=== PATIENT | male | born 1960 | race Caucasian/White ===

== ENCOUNTER → 2017-11-15 | Outpatient (CLI) | payer OTHER ==
--- NOTE | 2017-11-15 14:58 | RAD ---
5 views of the thoracic spine 11/15/2017 Indication: Thoracic radiculopathy Comparison study: None Discussion: No evidence of acute fracture or alignment abnormality is identified. Vertebral body heights are preserved. Minimal diffuse disc space narrowing is seen consistent with mild age-appropriate degenerative change. No acute soft tissue abnormalities are identified. Impression: Mild degenerative changes. No radiographic evidence of acute osseous normality.
== END | disposition home or self-care (01) ==
LOC: PMG 09:15
PROVIDERS: ATTEND Physician Assistant Medical
DX: M54.14 Radiculopathy, thoracic region (principal); M47.894 Other spondylosis, thoracic region
CPT/HCPCS: 72072

== ENCOUNTER → 2018-04-13 | Outpatient (CLI) | payer OTHER ==
--- NOTE | 2018-04-13 09:36 | RAD ---
Chest, 2 views, 04/13/2018: HISTORY: Shortness of breath, chest pain Comparison is made to a study from 01/27/2016. The heart size and pulmonary vascularity are normal. No pulmonary infiltrate is seen. There is no evidence of pleural fluid. IMPRESSION: No acute cardiopulmonary abnormality is detected. Electronically signed by: Rafael Leyva MD (04/13/2018 9:33 AM) [facility]
[2018-04-13 09:49] LABS: BASO % 1 % (0-3); EOS # 0.1 x10^3/uL (0.0-0.7); EOS % 2 % (0-3); HEMATOCRIT 38.8 % (39.0-53.0); HEMOGLOBIN 13.7 g/dL (13.0-17.5); LYMPH # 1.3 x10^3/uL (1.0-4.8); LYMPH % 35 % (24-48); MEAN CORPUSCULAR HEMOGLOBIN 35 pg (25-35); MEAN CORPUSCULAR HGB CONC 35 g/dL (31-37); MEAN CORPUSCULAR VOLUME 99 fL (79-100); MONO # 0.3 x10^3/uL (0.0-1.1); MONO % 7 % (0-9); NEUT # 2.1 x10^3uL (1.8-7.7); NEUT % 55 % (31-73); PLATELET COUNT 177 x10^3/uL (140-400); RED BLOOD COUNT 3.92 x10^6/uL (4.30-5.70); RED CELL DISTRIBUTION WIDTH 14.4 % (11.5-14.5); WHITE BLOOD COUNT 3.8 x10^3/uL (4.0-11.0)
[2018-04-13 10:24] LABS: ALBUMIN 3.2 g/dL (3.4-5.0); ALBUMIN/GLOBULIN RATIO 0.4 (1.0-1.7); CALCIUM 9.1 mg/dL (8.5-10.1); CREATININE 1.1 mg/dL (0.7-1.3); TOTAL BILIRUBIN 0.6 mg/dL (0.2-1.0); TOTAL PROTEIN 10.7 g/dL (6.4-8.2)
[2018-04-13 13:55] LABS: FREE T4 0.87 ng/dL (0.76-1.46); THYROID STIM HORMONE (TSH) 4.724 uIU/mL (0.358-3.740)
== END | disposition home or self-care (01) ==
LOC: PMG 08:59
PROVIDERS: ATTEND Physician Assistant
DX: R06.00 Dyspnea, unspecified (principal); R53.83 Other fatigue; I10 Essential (primary) hypertension
CPT/HCPCS: 36415; 71046; 80053; 80061; 82553; 83615; 84439; 84443; 84484; 85025

== ENCOUNTER → 2018-05-01 | Outpatient (CLI) | payer OTHER ==
--- NOTE | 2018-05-01 10:19 | RAD ---
Right upper quadrant abdominal ultrasound, 05/01/2018: HISTORY: Right upper quadrant pain The gallbladder is within normal limits in size. There is no sonographic evidence of cholelithiasis. The gallbladder geiger are not thickened. No bile duct dilatation is evident. The liver demonstrates generalized increased echogenicity, most commonly due to fatty change. No hepatic mass is evident. The visualized portions of the right kidney and pancreas are unremarkable. IMPRESSION: 1. No significant gallbladder abnormality is detected. 2. Increased hepatic echogenicity suggesting hepatic steatosis. Electronically signed by: Rafael Leyva MD (05/01/2018 10:15 AM) [facility]
== END | disposition home or self-care (01) ==
LOC: PMG 09:13
PROVIDERS: ATTEND Physician Assistant Medical
DX: R10.11 Right upper quadrant pain (principal)
CPT/HCPCS: 76705

== ENCOUNTER → 2018-06-27 | Outpatient (CLI) | payer OTHER ==
[~2018-06-27] MED LIST: IOHEXOL 240 MG/ML 50ML VIAL. ONE; IOHEXOL 300 MG/ML 75 ML VIAL. IV ONE
--- NOTE | 2018-06-27 11:10 | RAD ---
EXAM: Abdomen CT with intravenous contrast. HISTORY: Pain status post cholecystectomy. TECHNIQUE: Computed tomographic images of the abdomen were obtained following the administration of 75 cc Omnipaque 300 intravenous contrast. Multiplanar reformatting was performed. *One or more of the following individualized dose reduction techniques were utilized for this examination: 1. Automated exposure control. 2. Adjustment of the mA and/or kV according to patient size. 3. Use of iterative reconstruction technique. COMPARISON: 12/04/2015. FINDINGS: Evaluation of the lower thorax demonstrates posterior dependent and basilar atelectasis with slight increased extrapleural fat. There is right middle lobe and lingular atelectasis or scarring. There is a 3 mm nodule within the right middle lobe. There is mild cardiomegaly. There are prominent nonspecific right costophrenic lymph nodes, likely reactive or physiologic. These are slightly increased compared to the prior study There is hepatomegaly and hepatic steatosis. There is a 2.2 cm fluid collection within the gallbladder facet. The pancreas is unremarkable. The spleen is mildly enlarged, measuring 15.0 cm. The adrenal glands are unremarkable. There is no nephroureterolithiasis or obstructive uropathy. No suspicious renal lesion is seen. There is no appendicitis. There are diverticula within the visualized colon. There is no convincing diverticulitis. There is stranding within the right ventral abdominal wall and the periumbilical soft tissues due to recent laparoscopic surgery. There are prominent retroperitoneal and mesenteric lymph nodes, none of which are pathologically enlarged. There are degenerative changes within the spine, primarily at the lower lumbar levels. There is a transitional lumbosacral segment. IMPRESSION: 1. Small fluid collection within the gallbladder fossa measuring 2.2 cm. Given a history of recent surgery, this is likely due to a small postoperative seroma. The imaging appearance does not favor a biloma or abscess. 2. Hepatic steatosis and hepatosplenomegaly. 3. Colonic diverticulosis. 4. Stranding within the right ventral abdominal wall and periapical soft tissues due to recent fluoroscopic surgery. 5. Note is made that the pelvis is excluded from the [id number] on this exam. Electronically signed by: Gay Santo MD (06/27/2018 11:07 AM) [id number]
== END | disposition home or self-care (01) ==
LOC: CT 08:40
PROVIDERS: ATTEND Neuromusculoskeletal Medicine & OMM
DX: K76.0 Fatty (change of) liver, not elsewhere classified (principal); K57.30 Diverticulosis of large intestine without perforation or abscess without bleeding; J98.11 Atelectasis; I10 Essential (primary) hypertension; R16.2 Hepatomegaly with splenomegaly, not elsewhere classified
CPT/HCPCS: 74177; Q9966; Q9967

== ENCOUNTER → 2018-07-03 | Outpatient (CLI) | payer OTHER ==
[~2018-07-03] MED LIST changes: -IOHEXOL 240 MG/ML 50ML VIAL. ONE
[2018-07-03 10:24] LABS: BASO % 1 % (0-3); EOS # 0.1 x10^3/uL (0.0-0.7); EOS % 2 % (0-3); HEMATOCRIT 24.3 % (39.0-53.0); HEMOGLOBIN 8.7 g/dL (13.0-17.5); LYMPH # 2.8 x10^3/uL (1.0-4.8); LYMPH % 48 % (24-48); MEAN CORPUSCULAR HEMOGLOBIN 34 pg (25-35); MEAN CORPUSCULAR HGB CONC 36 g/dL (31-37); MEAN CORPUSCULAR VOLUME 95 fL (79-100); MONO # 0.7 x10^3/uL (0.0-1.1); MONO % 11 % (0-9); NEUT # 2.2 x10^3uL (1.8-7.7); NEUT % 38 % (31-73); PLATELET COUNT 141 x10^3/uL (140-400); RED BLOOD COUNT 2.56 x10^6/uL (4.30-5.70); WHITE BLOOD COUNT 5.8 x10^3/uL (4.0-11.0)
[2018-07-03 10:53] LABS: ALBUMIN 2.4 g/dL (3.4-5.0); CALCIUM 9.4 mg/dL (8.5-10.1); CREATININE 1.2 mg/dL (0.7-1.3); GFR 60.8; POTASSIUM 4.1 mmol/L (3.5-5.1); TOTAL BILIRUBIN 0.4 mg/dL (0.2-1.0)
[2018-07-03 10:56] LABS: ALBUMIN/GLOBULIN RATIO 0.2 (1.0-1.7)
[2018-07-03 10:58] LABS: TOTAL PROTEIN 14.1 g/dL (6.4-8.2)
--- NOTE | 2018-07-03 11:56 | RAD ---
Chest CTA History: Cholecystectomy 4 weeks ago with continued pain on the right side of the chest, shortness of air with exertion Technique: After bolus of intravenous contrast, CT imaging was performed of the chest. Multiplanar reconstruction images to include MIP reconstruction images are submitted. Exposure: One or more of the following individualized dose reduction techniques were utilized for this examination: 1. Automated exposure control 2. Adjustment of the mA and/or kV according to patient size 3. Use of iterative reconstruction technique. Contrast: 75 cc Omnipaque 300 Comparison: None Findings: [ ] No pulmonary embolism is identified, limited evaluation of the smaller and more distal branches due to motion and incomplete contrast opacification for exam. There is coronary calcification. There is trace right pleural effusion. There is no pneumothorax or lobar infiltrate. There is mild linear likely atelectasis right middle lobe, also minimally of the superior right lower lobe as well as lingula. Major airways are patent. No significantly enlarged nodes are identified of the chest and small mediastinal nodes. Thoracic aortic caliber is within normal limits without intraluminal flap. There has been cholecystectomy, no significant fluid collection of the visualized gallbladder fossa. There is a small right middle lobe nodule axial image 61 0.4 cm. There are axillary nodes bilaterally although not considered significantly enlarged. Impression: 1. No pulmonary embolism is identified, limited evaluation of the smaller and more distal branches on this exam. There is atelectasis bilaterally. There is a small right middle lobe nodule calcified nodule. If there are increased risk factors for neoplasm, optional 12 month follow-up could be obtained as per revised Fleischner guidelines, no follow-up needed if low risk factors. 2. There is coronary calcification. Electronically signed by: Terry Bustillos MD (07/03/2018 11:53 AM) [id number]
== END | disposition home or self-care (01) ==
LOC: PMG 09:33 → EDBD 09:33
PROVIDERS: ATTEND Physician Assistant Medical
DX: I25.10 Atherosclerotic heart disease of native coronary artery without angina pectoris (principal); J98.11 Atelectasis; I10 Essential (primary) hypertension; R91.1 Solitary pulmonary nodule
CPT/HCPCS: 36415; 71275; 80053; 82607; 82728; 83540; 83550; 85025; 85379; 85651; Q9967

== ENCOUNTER 2018-07-21 02:29 | Emergency (ER) | payer OTHER ==
[~2018-07-21] VITALS: Ht 175.3 cm; Wt 107.0 kg
--- NOTE | 2018-07-21 02:38 | ED.ADGEN ---
Past History Past Medical History: Anemia, Anxiety, Other Past Surgical History: Cholecystectomy, Other Adult General Chief Complaint Chief Complaint .... "I think I am dehydrated.. and I have not had anything to drink since mid night.. for a bone biopsy at [address] Wise... I am all nervous.. and afraid I will not wake up in time for the biopsy.. I can't sleep... been pacing the floor.. I had my gall bladder out in May.. and never bounce back... and I seen Dr. Rose.. and she did some labs on me.. and said they were off.... "wankie".. So I seen Dr. Wise.. and they are getting biopsy for multiple myeloma... because my albumin was low.. but protein was high... ".." I had a colon scope .by [facility]..and he did biopsy.. or took out a polyp and treated a small little bleed...."..." a couple week s ago..."..." Just feel so tired and weak..." HPI HPI Patient is a 58 year old male who presents with above hx and complaints anxiety , insomnia, fatigue, anemia, and complaints he is dehydrated. Patient has scheduled biopsy this coming a.m. at 0700 hrs. At [facility] by Dr. Wise. Patient denies any changes in meds, travel, specific ill contacts, or history immunosuppression. Reviewed labs of 07/03 at that time he was anemic with a hemoglobin 8.7. Had elevated ESR 130, hyponatremia at 131, TIBC at 198. Patient denies any travel or specific ill contacts. Patient denies changes in diet other than his nothing by mouth status since midnight. Review of Systems Review of Systems Constitutional: Denies fever or chills [] Eyes: Denies change in visual acuity, redness, or eye pain [] HENT: Denies nasal congestion or sore throat [] Respiratory: Denies cough or shortness of breath [] Cardiovascular: No additional information not addressed in HPI [] GI: Denies abdominal pain, nausea, vomiting, bloody stools or diarrhea [] : Denies dysuria or hematuria [] Musculoskeletal: Denies back pain or joint pain [] Integument: Denies rash or skin lesions [] Neurologic: Denies headache, focal weakness or sensory changes [] Endocrine: Denies polyuria or polydipsia [] All other systems were reviewed and found to be within normal limits, except as documented in this note. Family History Family History Non-contributory Current Medications Current Medications Current Medications Medications (Trade) Dose Ordered Sig/Allen Start Time Stop Time Status Last Admin Dose Admin Diphenhydramine HCl (Benadryl) 50 mg 1X ONCE 07/21/18 05:00 07/21/18 05:01 DC 07/21/18 04:37 50 MG Fentanyl Citrate (Fentanyl 2ml Vial) 75 mcg 1X ONCE 07/21/18 05:15 07/21/18 05:18 DC 07/21/18 05:18 75 MCG Lactated Ringer's 1,000 ml @ 1,000 mls/hr Q1H 07/21/18 03:00 07/21/18 03:59 DC 07/21/18 02:59 1,000 MLS/HR Lorazepam (Ativan) 2 mg 1X ONCE 07/21/18 03:00 07/21/18 03:01 DC 07/21/18 02:54 2 MG Sodium Bicarbonate (Sodium Bicarb Adult 8.4% Syr) 50 meq 1X ONCE 07/21/18 05:00 07/21/18 05:01 DC 07/21/18 04:36 50 MEQ See Nursing for home meds Allergies Allergies Allergies Coded Allergies Type Severity Reaction Last Updated Verified Penicillins Allergy Unknown 06/27/18 Yes Physical Exam Physical Exam Constitutional: in acute emotional distress, very anxious in appearance. [] HENT: Normocephalic, atraumatic, bilateral external ears normal, oropharynx moist, no oral exudates, nose normal. [] Eyes: PERRLA, EOMI, conjunctiva normal, no discharge. [] Neck: Normal range of motion, no tenderness, supple, no stridor. More 17" circumference Cardiovascular: Tachycardia Heart rate regular rhythm, no murmur [] Lungs & Thorax: Bilateral breath sounds equal at apexes auscultation [] Abdomen: Bowel sounds normal, soft, no tenderness, no masses, no pulsatile masses. Morbid Obese. Old surgical scar Skin: Warm, dry, no erythema, no rash. [] Back: No tenderness, no CVA tenderness. [] Extremities: No tenderness, no cyanosis, no clubbing, ROM intact, no edema. [] Neurologic: Alert and oriented X 3, normal motor function, normal sensory function, no focal deficits noted. [] Psychologic: Affect very anxious, judgement normal, mood normal. [] Current Patient Data Vital Signs Vital Signs Date Time Temp Pulse Resp B/P (MAP) Pulse Ox O2 Delivery O2 Flow Rate FiO2 07/21/18 05:18 18 99 Room Air 07/21/18 04:38 102 148/92 (110) 07/21/18 02:30 97.8 Lab Results Laboratory Tests Test 07/21/18 02:50 07/21/18 03:15 07/21/18 03:20 07/21/18 03:40 White Blood Count 5.0 x10^3/uL (4.0-11.0) Red Blood Count 2.02 x10^6/uL (4.30-5.70) L Hemoglobin 6.9 g/dL (13.0-17.5) *L Hematocrit 18.9 % (39.0-53.0) *L Mean Corpuscular Volume 94 fL (79-100) Mean Corpuscular Hemoglobin 34 pg (25-35) Mean Corpuscular Hemoglobin Concent 37 g/dL (31-37) Red Cell Distribution Width 19.5 % (11.5-14.5) H Platelet Count 137 x10^3/uL (140-400) L Neutrophils (%) (Auto) 49 % (31-73) Lymphocytes (%) (Auto) 41 % (24-48) Monocytes (%) (Auto) 8 % (0-9) Eosinophils (%) (Auto) 1 % (0-3) Basophils (%) (Auto) 1 % (0-3) Neutrophils # (Auto) 2.4 x10^3uL (1.8-7.7) Lymphocytes # (Auto) 2.0 x10^3/uL (1.0-4.8) Monocytes # (Auto) 0.4 x10^3/uL (0.0-1.1) Eosinophils # (Auto) 0.1 x10^3/uL (0.0-0.7) Basophils # (Auto) 0.0 x10^3/uL (0.0-0.2) Erythrocyte Sedimentation Rate 165 (0-15) H Urine Collection Type Unknown Urine Color Yellow Urine Clarity Clear Urine pH 6.5 Urine Specific [place] 1.010 Urine Protein Neg (NEG-TRACE) Urine Glucose (UA) Neg mg/dL (NEG) Urine Ketones (Stick) Neg mg/dL (NEG) Urine Blood Trace (NEG) Urine Nitrite Neg (NEG) Urine Bilirubin Neg (NEG) Urine Urobilinogen Dipstick 0.2 mg/dL (0.2 mg/dL) Urine Leukocyte Esterase Neg (NEG) Urine RBC Occ /HPF (0-2) Urine WBC Rare /HPF (0-4) Urine Squamous Epithelial Cells Occ /LPF Urine Bacteria 0 /HPF (0-FEW) Sodium Level 125 mmol/L (136-145) L Potassium Level 3.6 mmol/L (3.5-5.1) Chloride Level 90 mmol/L (98-107) L Carbon Dioxide Level 23 mmol/L (21-32) Anion Gap 12 (6-14) Blood Urea Nitrogen 16 mg/dL (8-26) Creatinine 1.3 mg/dL (0.7-1.3) Estimated GFR (Cockcroft-Gault) 56.9 Glucose Level 105 mg/dL (70-99) H Calcium Level 8.9 mg/dL (8.5-10.1) Total Bilirubin 0.7 mg/dL (0.2-1.0) Direct Bilirubin 0.3 mg/dL (0.0-0.2) H Aspartate Amino Transferase (AST) 44 U/L (15-37) H Alanine Aminotransferase (ALT) 19 U/L (16-63) Alkaline Phosphatase 69 U/L (46-116) Total Protein 12.9 g/dL (6.4-8.2) H Albumin 2.4 g/dL (3.4-5.0) L Prothrombin Time Pending Prothrombin Time INR (0.9-1.1) PTT 26 SEC (23-33) EKG EKG [] Radiology/Procedures Radiology/Procedures [] Course & Med Decision Making Course & Med Decision Making Pertinent Labs and Imaging studies reviewed. (See chart for details) Dr. Uribe accepts pt in transfer. Discussed presentation with Dr. Lyn- entry level installation technician for Dr Wise. Will transfer to [facility] for admit. Consult Billie for Biopsy in hospital and transfuse. Pt. [] Final Impression Final Impression 1. Anxiety 2. History anemia 8.7 Hgb on 07/03 Labs Today 6.9 3. History of elevated ESR- 130 " 165 today 4. History of hyponatremia[] 131 "- "125" Today 5. Hx. Elevated TIBC 198, Fe bind=49 " 6. Elevated AST=47 " 44 today 7. Malnutrition- Alb. 2.4 "- 2.4 today 8. Elevated TSH - 4.7 " 9. Thrombocytopenia- 137 -133 today 10.Abd. Pain Dragon Disclaimer Dragon Disclaimer This electronic medical record was generated, in whole or in part, using a voice recognition dictation system. SANTY BURNS MD Jul 21, 2018 02:38
[2018-07-21] MEDS ORDERED: IV RINGERS SOLUTION,LACTATED 1,000 ML IV SCH (03:00)
[2018-07-21] MEDS ORDERED: LORazepam 1 MG TABLET PO ONE (03:00)
[2018-07-21 03:17] LABS: BASO % 1 % (0-3); EOS # 0.1 x10^3/uL (0.0-0.7); EOS % 1 % (0-3); LYMPH % 41 % (24-48); MEAN CORPUSCULAR HEMOGLOBIN 34 pg (25-35); MEAN CORPUSCULAR HGB CONC 37 g/dL (31-37); MEAN CORPUSCULAR VOLUME 94 fL (79-100); MONO # 0.4 x10^3/uL (0.0-1.1); MONO % 8 % (0-9); NEUT # 2.4 x10^3uL (1.8-7.7); NEUT % 49 % (31-73); PLATELET COUNT 137 x10^3/uL (140-400); RED BLOOD COUNT 2.02 x10^6/uL (4.30-5.70); RED CELL DISTRIBUTION WIDTH 19.5 % (11.5-14.5)
[2018-07-21 03:24] LABS: HEMATOCRIT 18.9 % (39.0-53.0); HEMOGLOBIN 6.9 g/dL (13.0-17.5)
[2018-07-21 03:46] LABS: BILIRUBIN,URINE NEG (NEG); CLARITY,URINE CLEAR; COLOR,URINE YELLOW; GLUCOSE,URINE NEG (NEG)
[2018-07-21 03:47] LABS: BACTERIA,URINE 0 /HPF (0-FEW); NITRITE,URINE NEG (NEG); RBC,URINE OCC /HPF (0-2); SQUAMOUS EPITHELIAL CELL,UR OCC /LPF; UROBILINOGEN,URINE 0.2 mg/dL (0.2 mg/dL); WBC,URINE RARE /HPF (0-4)
[2018-07-21 04:01] LABS: ALBUMIN 2.4 g/dL (3.4-5.0); CALCIUM 8.9 mg/dL (8.5-10.1); CREATININE 1.3 mg/dL (0.7-1.3); DIRECT BILIRUBIN 0.3 mg/dL (0.0-0.2); GFR 56.9; POTASSIUM 3.6 mmol/L (3.5-5.1); TOTAL BILIRUBIN 0.7 mg/dL (0.2-1.0)
[2018-07-21 04:02] LABS: TOTAL PROTEIN 12.9 g/dL (6.4-8.2)
[2018-07-21] MEDS ORDERED: SODIUM BICARB ADULT 8.4% 50 MEQ/50 ML DISP.SYRIN. IV ONE (05:00)
[2018-07-21] MEDS ORDERED: diphenhydrAMINE 50 MG/ML VIAL IVP ONE (05:00)
[2018-07-21 06:08] VITALS: BP 166/96
== END 2018-07-21 06:35 | disposition short-term general hospital (02) ==
LOC: ER 02:29
DX: F41.9 Anxiety disorder, unspecified (principal); E87.1 Hypo-osmolality and hyponatremia; E86.0 Dehydration; E46 Unspecified protein-calorie malnutrition; R10.9 Unspecified abdominal pain; D69.6 Thrombocytopenia, unspecified; E34.9 Endocrine disorder, unspecified; R74.0 Nonspecific elevation of levels of transaminase and lactic acid dehydrogenase [LDH]; Z86.2 Personal history of diseases of the blood and blood-forming organs and certain disorders involving the immune mechanism; Z68.34 Body mass index [BMI] 34.0-34.9, adult; Z90.49 Acquired absence of other specified parts of digestive tract; Z88.0 Allergy status to penicillin
CPT/HCPCS: 36415; 80048; 80076; 81001; 85025; 85045; 85610; 85651; 85730; 96361; 96374; 96375; 99285; J1200; J3010; J7120

== ENCOUNTER → 2018-09-07 | Outpatient (CLI) | payer OTHER ==
[2018-09-07 15:08] LABS: BASO % 0 % (0-3); EOS # 0.1 x10^3/uL (0.0-0.7); EOS % 4 % (0-3); HEMATOCRIT 32.9 % (39.0-53.0); HEMOGLOBIN 11.3 g/dL (13.0-17.5); LYMPH # 1.4 x10^3/uL (1.0-4.8); LYMPH % 37 % (24-48); MEAN CORPUSCULAR HEMOGLOBIN 33 pg (25-35); MEAN CORPUSCULAR HGB CONC 34 g/dL (31-37); MEAN CORPUSCULAR VOLUME 97 fL (79-100); MONO # 0.3 x10^3/uL (0.0-1.1); MONO % 7 % (0-9); NEUT % 53 % (31-73); PLATELET COUNT 269 x10^3/uL (140-400); RED CELL DISTRIBUTION WIDTH 17.6 % (11.5-14.5); WHITE BLOOD COUNT 3.9 x10^3/uL (4.0-11.0)
[2018-09-07 15:17] LABS: ALBUMIN 3.3 g/dL (3.4-5.0); ALBUMIN/GLOBULIN RATIO 0.7 (1.0-1.7); CALCIUM 8.4 mg/dL (8.5-10.1); CREATININE 0.9 mg/dL (0.7-1.3); POTASSIUM 3.2 mmol/L (3.5-5.1); TOTAL BILIRUBIN 0.3 mg/dL (0.2-1.0); TOTAL PROTEIN 7.8 g/dL (6.4-8.2)
== END | disposition home or self-care (01) ==
LOC: LAB 14:21
PROVIDERS: ATTEND Nurse Practitioner Adult Health
DX: C90.00 Multiple myeloma not having achieved remission (principal)
CPT/HCPCS: 36415; 80053; 85025

== ENCOUNTER → 2018-09-21 | Outpatient (CLI) | payer OTHER ==
[2018-09-21 11:36] LABS: BASO % 0 % (0-3); EOS # 0.1 x10^3/uL (0.0-0.7); EOS % 1 % (0-3); HEMATOCRIT 36.2 % (39.0-53.0); HEMOGLOBIN 12.1 g/dL (13.0-17.5); LYMPH # 2.2 x10^3/uL (1.0-4.8); LYMPH % 26 % (24-48); MEAN CORPUSCULAR HEMOGLOBIN 32 pg (25-35); MEAN CORPUSCULAR HGB CONC 34 g/dL (31-37); MEAN CORPUSCULAR VOLUME 97 fL (79-100); MONO # 0.6 x10^3/uL (0.0-1.1); MONO % 8 % (0-9); NEUT # 5.5 x10^3uL (1.8-7.7); NEUT % 66 % (31-73); PLATELET COUNT 226 x10^3/uL (140-400); RED BLOOD COUNT 3.74 x10^6/uL (4.30-5.70); RED CELL DISTRIBUTION WIDTH 17.5 % (11.5-14.5); WHITE BLOOD COUNT 8.4 x10^3/uL (4.0-11.0)
[2018-09-21 11:43] LABS: ALBUMIN 3.7 g/dL (3.4-5.0); ALBUMIN/GLOBULIN RATIO 1.1 (1.0-1.7); CALCIUM 8.4 mg/dL (8.5-10.1); CREATININE 0.9 mg/dL (0.7-1.3); POTASSIUM 4.6 mmol/L (3.5-5.1); TOTAL BILIRUBIN 0.6 mg/dL (0.2-1.0)
[2018-09-22 14:09] LABS: KAPPA FREE 42.9 mg/L (3.3-19.4); KAPPA LAMBDA RATIO 6.81 (0.26-1.65); LAMBDA FREE 6.3 mg/L (5.7-26.3)
== END | disposition home or self-care (01) ==
LOC: LAB 10:28
PROVIDERS: ATTEND Nurse Practitioner Adult Health
DX: C90.00 Multiple myeloma not having achieved remission (principal)
CPT/HCPCS: 36415; 80053; 83520; 84165; 85025; 86334

== ENCOUNTER → 2018-10-18 | Outpatient (CLI) | payer OTHER ==
[2018-10-18 15:17] LABS: BASO % 1 % (0-3); EOS # 0.1 x10^3/uL (0.0-0.7); EOS % 3 % (0-3); HEMATOCRIT 33.6 % (39.0-53.0); HEMOGLOBIN 11.4 g/dL (13.0-17.5); LYMPH # 1.4 x10^3/uL (1.0-4.8); LYMPH % 27 % (24-48); MEAN CORPUSCULAR HEMOGLOBIN 33 pg (25-35); MEAN CORPUSCULAR HGB CONC 34 g/dL (31-37); MEAN CORPUSCULAR VOLUME 96 fL (79-100); MONO # 0.7 x10^3/uL (0.0-1.1); MONO % 13 % (0-9); NEUT % 58 % (31-73); PLATELET COUNT 256 x10^3/uL (140-400); RED CELL DISTRIBUTION WIDTH 16.6 % (11.5-14.5); WHITE BLOOD COUNT 5.2 x10^3/uL (4.0-11.0)
[2018-10-18 15:25] LABS: ALBUMIN 3.5 g/dL (3.4-5.0); ALBUMIN/GLOBULIN RATIO 1.1 (1.0-1.7); CALCIUM 8.7 mg/dL (8.5-10.1); CREATININE 0.8 mg/dL (0.7-1.3); GFR 99.6; POTASSIUM 4.2 mmol/L (3.5-5.1); TOTAL BILIRUBIN 0.5 mg/dL (0.2-1.0); TOTAL PROTEIN 6.6 g/dL (6.4-8.2)
== END | disposition home or self-care (01) ==
LOC: LAB 14:16
PROVIDERS: ATTEND Internal Medicine Hematology & Oncology
DX: C90.00 Multiple myeloma not having achieved remission (principal)
CPT/HCPCS: 36415; 80053; 85025

== ENCOUNTER → 2018-11-22 | Outpatient (CLI) | payer OTHER ==
[2018-11-22 15:40] LABS: BASO % 1 % (0-3); EOS # 0.3 x10^3/uL (0.0-0.7); EOS % 6 % (0-3); HEMATOCRIT 34.5 % (39.0-53.0); HEMOGLOBIN 11.8 g/dL (13.0-17.5); LYMPH # 0.9 x10^3/uL (1.0-4.8); LYMPH % 17 % (24-48); MEAN CORPUSCULAR HEMOGLOBIN 33 pg (25-35); MEAN CORPUSCULAR HGB CONC 34 g/dL (31-37); MEAN CORPUSCULAR VOLUME 96 fL (79-100); MONO # 0.5 x10^3/uL (0.0-1.1); MONO % 10 % (0-9); NEUT # 3.6 x10^3uL (1.8-7.7); NEUT % 66 % (31-73); PLATELET COUNT 152 x10^3/uL (140-400); RED BLOOD COUNT 3.58 x10^6/uL (4.30-5.70); RED CELL DISTRIBUTION WIDTH 18.3 % (11.5-14.5); WHITE BLOOD COUNT 5.4 x10^3/uL (4.0-11.0)
[2018-11-22 15:56] LABS: ALBUMIN 3.8 g/dL (3.4-5.0); ALBUMIN/GLOBULIN RATIO 1.4 (1.0-1.7); CREATININE 1.1 mg/dL (0.7-1.3); POTASSIUM 3.5 mmol/L (3.5-5.1); TOTAL BILIRUBIN 1.2 mg/dL (0.2-1.0); TOTAL PROTEIN 6.6 g/dL (6.4-8.2)
== END | disposition home or self-care (01) ==
LOC: LAB 15:08
PROVIDERS: ATTEND Internal Medicine Hematology & Oncology
DX: C90.00 Multiple myeloma not having achieved remission (principal)
CPT/HCPCS: 36415; 80053; 85025

== ENCOUNTER → 2018-11-28 | Outpatient (CLI) | payer OTHER ==
[2018-11-28 14:36] LABS: BASO % 1 % (0-3); EOS # 0.2 x10^3/uL (0.0-0.7); EOS % 3 % (0-3); HEMATOCRIT 33.9 % (39.0-53.0); HEMOGLOBIN 11.8 g/dL (13.0-17.5); LYMPH # 1.2 x10^3/uL (1.0-4.8); LYMPH % 20 % (24-48); MEAN CORPUSCULAR HEMOGLOBIN 34 pg (25-35); MEAN CORPUSCULAR HGB CONC 35 g/dL (31-37); MEAN CORPUSCULAR VOLUME 97 fL (79-100); MONO # 0.6 x10^3/uL (0.0-1.1); MONO % 10 % (0-9); NEUT # 4.2 x10^3uL (1.8-7.7); NEUT % 67 % (31-73); PLATELET COUNT 190 x10^3/uL (140-400); RED BLOOD COUNT 3.48 x10^6/uL (4.30-5.70); RED CELL DISTRIBUTION WIDTH 17.8 % (11.5-14.5); WHITE BLOOD COUNT 6.2 x10^3/uL (4.0-11.0)
[2018-11-28 14:49] LABS: ALBUMIN 3.6 g/dL (3.4-5.0); ALBUMIN/GLOBULIN RATIO 1.3 (1.0-1.7); CALCIUM 8.3 mg/dL (8.5-10.1); CREATININE 0.8 mg/dL (0.7-1.3); GFR 99.6; POTASSIUM 3.8 mmol/L (3.5-5.1); TOTAL BILIRUBIN 0.8 mg/dL (0.2-1.0); TOTAL PROTEIN 6.3 g/dL (6.4-8.2)
== END | disposition home or self-care (01) ==
LOC: LAB 13:38
PROVIDERS: ATTEND Internal Medicine Hematology & Oncology
DX: C90.00 Multiple myeloma not having achieved remission (principal)
CPT/HCPCS: 36415; 80053; 85025

== ENCOUNTER → 2019-03-23 | Outpatient (CLI) | payer OTHER ==
[~2019-03-23] MED LIST changes: +CONTRAST GIVEN MC PRN
--- NOTE | 2019-03-23 09:41 | RAD ---
CT of the abdomen and pelvis with and without contrast, 03/23/2019: History: Follow-up right renal abnormality Multidetector CT imaging was performed prior to and following an IV bolus injection of iodinated contrast material. Postcontrast imaging was performed in the nephrographic, portal venous and excretory phases. No oral contrast material was administered for this study. No renal calcifications are evident. The renal collecting systems are not dilated. There are minimal bilateral streaky perinephric opacities compatible with edema or scarring. No renal mass is evident. An abnormal process previously seen along the lateral margin of the right kidney on a PET study from 12/14/2018 and an MR study from 12/20/2018 is no longer evident. This most likely represented a subcapsular inflammatory process. There is mild linear atelectasis or scarring in the right lung base. There is no evidence of a hepatic mass or bile duct dilatation. There is a suggestion of hepatic steatosis. The gallbladder is surgically absent. No pancreatic abnormality is seen. The spleen is of normal size. There is moderate aortic calcific plaquing without evidence of aneurysm. No abdominal adenopathy is seen. The visualized bowel loops are unremarkable. No free fluid is evident in the abdomen. Moderate scattered degenerative changes are present in the lower lumbar spine. Small lucencies within the T11 and L1 vertebral bodies may be degenerative or related to the given history of multiple myeloma. The T11 lucency appears unchanged since a study from 06/27/2018. IMPRESSION: 1. Resolution of the subcapsular process along the lateral margin of the right kidney which was probably inflammatory in nature. 2. No current evidence of a renal mass. 3. Minimal bilateral streaky perinephric edema and/or scarring. PQRS Compliance Statement: One or more of the following individualized dose reduction techniques were utilized for this examination: 1. Automated exposure control 2. Adjustment of the mA and/or kV according to patient size 3. Use of iterative reconstruction technique PQRS Compliance Statement: One or more of the following individualized dose reduction techniques were utilized for this examination: 1. Automated exposure control 2. Adjustment of the mA and/or kV according to patient size 3. Use of iterative reconstruction technique
== END | disposition home or self-care (01) ==
LOC: CT 07:51
PROVIDERS: ATTEND Urology
DX: N28.89 Other specified disorders of kidney and ureter (principal); I70.0 Atherosclerosis of aorta; M47.816 Spondylosis without myelopathy or radiculopathy, lumbar region; Z85.79 Personal history of other malignant neoplasms of lymphoid, hematopoietic and related tissues; Z90.49 Acquired absence of other specified parts of digestive tract
CPT/HCPCS: 74170; Q9967

== ENCOUNTER 2019-03-28 16:23 | Emergency (ER) | payer OTHER ==
[~2019-03-28] VITALS: Ht 175.3 cm; Wt 96.1 kg
[2019-03-28 17:16] LABS: CALCIUM 9.1 mg/dL (8.5-10.1); CREATININE 0.9 mg/dL (0.7-1.3); MAGNESIUM 1.6 mg/dL (1.8-2.4)
--- NOTE | 2019-03-28 17:16 | EKG ---
[address] [address] Test Date: 2019-03-28 Test Time: 17:15:39 Pat Name: CHARITY OLMEDO Department: Room: Gender: M Scuba Instructor: MELINDA : 1960 Requested By: TABITHA GUDINO Order Number: [id number] Reading MD: Measurements Intervals [place] Rate: 106 P: 47 [place]: 130 QRS: 21 QRSD: 84 T: 28 QT: 340 QTc: 453 Interpretive Statements SINUS TACHYCARDIA QRS(T) CONTOUR ABNORMALITY CONSIDER ANTEROLATERAL MYOCARDIAL DAMAGE POSSIBLY ABNORMAL ECG RI6.01 No previous ECG available for comparison
[2019-03-28 17:18] LABS: POTASSIUM 2.9 mmol/L (3.5-5.1)
[2019-03-28] MEDS ORDERED: IV NORMAL SALINE 1,000ML 1,000 ML IV ONE (17:30)
[2019-03-28] MEDS ORDERED: MAGNESIUM SULFATE 1GM 100 ML IV ONE (17:30)
[2019-03-28] MEDS ORDERED: POTASSIUM CHLORIDE 20 MEQ TABLET.ER. PO ONE (17:30)
--- NOTE | 2019-03-28 17:39 | PHYS DOC ---
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 Patient states that he had blood work earlier today and was called by his oncologist's office due to low potassium. He states that his potassium level was reported to be 2.5. He is advised to come to the emergency department for evaluation. Patient has history of multiple myeloma and has had history of chronic hypokalemia. States that he takes daily potassium supplements but notes that his potassium has usually been measured between 2.9 and 3.1. Patient notes however that 2.5 is very low for him. States that he has been slightly lightheaded but denies any significant change in symptoms over the past few days. Has not had any muscle cramping or chest pain. (TABITHA GUDINO MD) Review of Systems Review of Systems Constitutional: Chronic lightheadedness and chronic fatigue, denies fever or chills [] Eyes: Denies change in visual acuity, redness, or eye pain [] HENT: Denies nasal congestion or sore throat [] Respiratory: Denies cough or shortness of breath [] Cardiovascular: Denies chest pain or edema[] GI: Denies abdominal pain, nausea, vomiting, bloody stools or diarrhea [] : Denies dysuria or hematuria [] Musculoskeletal: Denies back pain or joint pain [] Integument: Denies rash or skin lesions [] Neurologic: Denies headache, focal weakness or sensory changes [] All other systems were reviewed and found to be within normal limits, except as documented in this note. (TABITHA GUDINO MD) Current Medications Current Medications Current Medications Medications (Trade) Dose Ordered Sig/Allen Start Time Stop Time Status Last Admin Dose Admin Magnesium Sulfate 100 ml @ 100 mls/hr 1X ONCE 03/28/19 17:30 03/28/19 18:29 Potassium Chloride (Klor-Con) 40 meq 1X ONCE 03/28/19 17:30 03/28/19 17:32 DC Sodium Chloride 1,000 ml @ 1,000 mls/hr 1X ONCE 03/28/19 17:30 03/28/19 18:29 (TABITHA GUDINO MD) Allergies Allergies Allergies Coded Allergies Type Severity Reaction Last Updated Verified Penicillins Allergy Unknown 03/28/19 Yes amoxicillin Allergy Unknown 03/28/19 Yes (TABITHA GUDINO MD) Physical Exam Physical Exam Constitutional: Well developed, well nourished, no acute distress, non-toxic appearance. [] HENT: Normocephalic, atraumatic, bilateral external ears normal, oropharynx moist, no oral exudates, nose normal. [] Eyes: PERRLA, EOMI, conjunctiva normal, no discharge. [] Neck: Normal range of motion, no tenderness, supple, no stridor. [] Cardiovascular: Tachycardia, regular rhythm, no murmur [] Lungs & Thorax: Bilateral breath sounds clear to auscultation [] Abdomen: Bowel sounds normal, soft, no tenderness, no masses, no pulsatile masses. [] Skin: Warm, dry, no erythema, no rash. [] Back: No tenderness, no CVA tenderness. [] Extremities: No tenderness, no cyanosis, no clubbing, ROM intact, no edema. [] Neurologic: Alert and oriented X 3, normal motor function, normal sensory function, no focal deficits noted. [] (TABITHA GUDINO MD) Current Patient Data Vital Signs Vital Signs Date Time Temp Pulse Resp B/P (MAP) Pulse Ox O2 Delivery O2 Flow Rate FiO2 03/28/19 16:36 98.6 117 19 98 Lab Results Laboratory Tests Test 03/28/19 16:56 Sodium Level 142 mmol/L (136-145) Potassium Level 2.9 mmol/L (3.5-5.1) *L Chloride Level 103 mmol/L (98-107) Carbon Dioxide Level 28 mmol/L (21-32) Anion Gap 11 (6-14) Blood Urea Nitrogen 9 mg/dL (8-26) Creatinine 0.9 mg/dL (0.7-1.3) Estimated GFR (Cockcroft-Gault) 87.0 Glucose Level 149 mg/dL (70-99) H Calcium Level 9.1 mg/dL (8.5-10.1) Magnesium Level 1.6 mg/dL (1.8-2.4) L (TABITHA GUDINO MD) EKG EKG Interpreted by me: Heart rate 106, sinus tachycardia, no ST elevations or depressions, no T-wave changes[] (TABITHA GUDINO MD) Radiology/Procedures Radiology/Procedures Not performed[] (TABITHA GUDINO MD) Course & Med Decision Making Course & Med Decision Making Pertinent Labs and Imaging studies reviewed. (See chart for details) Patient's potassium levels 2.9 and magnesium is 1.6. The patient was started on IV fluids, IV magnesium sulfate, and oral potassium. The patient will need a repeat BMP after meds have been given. Care of patient was signed out to Dr. Palafox at [id number].[] (TABITHA GUDINO MD) Course & Med Decision Making Repeat- K was 3.0 and Mag 2.2 normalized. Pt. given additional dosage of KCL - 40 [place]. Review current CBC- Anemia 11.5 L20,M16,results are reportedly stable for pt. Pt. requesting discharge. Pt to review labs with primary and oncology. Return if any concerns. (SANTY PALAFOX MD) Dragon Disclaimer Dragon Disclaimer This electronic medical record was generated, in whole or in part, using a voice recognition dictation system. (TABITHA GUDINO MD) Departure Departure: Impression: Primary Impression: Hypokalemia Additional Impression: Hypomagnesemia Referrals: CADE EASLEY (PCP) Problem Qualifiers TABITHA GUDINO MD March 28, 2019 17:39 SANTY PALAFOX MD March 29, 2019 05:12
[2019-03-28 19:35] LABS: BASO % 1 % (0-3); EOS # 0.1 x10^3/uL (0.0-0.7); EOS % 2 % (0-3); HEMATOCRIT 33.8 % (39.0-53.0); HEMOGLOBIN 11.5 g/dL (13.0-17.5); LYMPH # 0.7 x10^3/uL (1.0-4.8); LYMPH % 20 % (24-48); MEAN CORPUSCULAR HEMOGLOBIN 33 pg (25-35); MEAN CORPUSCULAR HGB CONC 34 g/dL (31-37); MEAN CORPUSCULAR VOLUME 97 fL (79-100); MONO # 0.6 x10^3/uL (0.0-1.1); MONO % 16 % (0-9); NEUT # 2.1 x10^3uL (1.8-7.7); NEUT % 61 % (31-73); PLATELET COUNT 208 x10^3/uL (140-400); RED BLOOD COUNT 3.49 x10^6/uL (4.30-5.70); RED CELL DISTRIBUTION WIDTH 15.9 % (11.5-14.5); WHITE BLOOD COUNT 3.5 x10^3/uL (4.0-11.0)
[2019-03-28 19:43] LABS: CREATININE 0.7 mg/dL (0.7-1.3); GFR 116.2
[2019-03-28] MEDS ORDERED: POTASSIUM CHLORIDE 20 MEQ/15 ML ORAL LIQUID. PO ONE (20:15)
[2019-03-28 20:29] VITALS: BP 120/81
== END 2019-03-28 20:40 | disposition home or self-care (01) ==
LOC: ER 16:23
DX: E87.6 Hypokalemia (principal); E83.42 Hypomagnesemia; F41.9 Anxiety disorder, unspecified; Z86.2 Personal history of diseases of the blood and blood-forming organs and certain disorders involving the immune mechanism; Z88.0 Allergy status to penicillin; Z88.1 Allergy status to other antibiotic agents
CPT/HCPCS: 36415; 80048; 83735; 85025; 93005; 96365; 99285; J3475; J7030

== ENCOUNTER → 2019-05-17 | Outpatient (CLI) | payer OTHER | END | disposition home or self-care (01) | LOC: LAB 12:43 | PROVIDERS: ATTEND Nurse Practitioner Adult Health | DX: R19.7 Diarrhea, unspecified (principal) | CPT/HCPCS: 36415; 87493 ==